=== PATIENT | female | born 1940 | race Caucasian/White ===

== ENCOUNTER 2023-04-12 05:37 | Observation (INO) ==
[2023-04-12] MEDS ORDERED: Chlorhexidine MOUTHWASH 0.12% 15 ML UDC ONE (05:44)
[2023-04-12] MEDS ORDERED: Lactated Ringers 1000 ml BAG 1,000 ML IV SCH ×2 (06:00→10:00)
[2023-04-12] MEDS ORDERED: Famotidine IV 10 MG/ML 2 ml VIAL (20 mg) IV ONE (06:00)
[2023-04-12] MEDS ORDERED: Buffered Lidocaine 1% SYRIN 1 ml INTRADERM ONE (06:00)
[2023-04-12] MEDS ORDERED: Lidocaine 2% PF 5 ML VIAL ONE (06:22)
[2023-04-12] MEDS ORDERED: Propofol 10 MG/ML 20 ML BTL ONE (06:28)
[2023-04-12] MEDS ORDERED: fentaNYL 100 mcg/2 ml 50 MCG/ML VIAL ONE (06:28)
[2023-04-12] MEDS ORDERED: Rocuronium 50 mg VIAL 10 mg/ml 5 ml VIAL (50 mg) ONE (06:28)
[2023-04-12] MEDS ORDERED: ceFAZolin 2 GM PREMIX 2 GM/50 ML BAG ONE (06:43)
[2023-04-12] MEDS ORDERED: Famotidine IV 10 MG/ML 2 ml VIAL (20 mg) ONE (06:43)
[2023-04-12] MEDS ORDERED: Lidocaine 1% w EPI 1:200,000 SDV 30 ML VIAL ONE (06:58)
[2023-04-12] MEDS ORDERED: Gelfoam Sponge SIZE 100 SPONGE ONE (06:58)
[2023-04-12] MEDS ORDERED: ceFAZolin VIAL VIAL ONE (06:58)
[2023-04-12] MEDS ORDERED: Thrombin 5,000 UNITS 1 APPLIC KIT - topical use - TOPICAL ONE (06:58)
[2023-04-12 07:04] LABS: Rapid COVID-19 Molecular Undetected (Undetected)
[2023-04-12] MEDS ORDERED: Phenylephrine IV 10 MG/ML 1 ml VIAL ONE (07:12)
[2023-04-12] MEDS ORDERED: Phenylephrine 40 mcg/mL 10mL (400mcg) SYRINGE ONE (07:39)
[2023-04-12] MEDS ORDERED: Dexamethasone IV 4 MG/ML VIAL 1 ml VIAL ONE (07:50)
[2023-04-12] MEDS ORDERED: Ondansetron 4 mg VIAL 2 MG/ML 2 ml VIAL ONE (07:50)
[2023-04-12] MEDS ORDERED: Acetaminophen IV 1 GM/100ML 1,000 MG/100 ML BAG IV ONE (07:54)
[2023-04-12] MEDS ORDERED: Naloxone 0.4 mg VIAL 0.4 mg/ml 1 ml VIAL IV PRN (08:06)
[2023-04-12] MEDS ORDERED: fentaNYL 100 mcg/2 ml 50 MCG/ML VIAL IV PRN (08:06)
[2023-04-12] MEDS ORDERED: Ondansetron 4 mg VIAL 2 MG/ML 2 ml VIAL IV PRN (09:19)
[2023-04-12] MEDS ORDERED: Calcium Carb (TUMS) 500 mg CHEW TAB PO PRN (09:19)
[2023-04-12] MEDS ORDERED: Morphine 2 MG/ML SYRINGE IV PRN (09:19)
[2023-04-12] MEDS ORDERED: Senna TAB 8.6 mg TAB PO PRN (09:19)
[2023-04-12] MEDS ORDERED: HYDROcodone/ACETAMIN 5/325 mg TAB PO PRN ×2 (11:00)
[2023-04-12] MEDS ORDERED: Dextran 70/Hypromellose Tears Eye Drops 15 ml BTL (for Artificials Tears) LEFT EYE PRN (11:00)
[2023-04-12] MEDS ORDERED: Insulin GLARGINE 100 un/ml 10 ml VIAL SUBCUT SCH (21:00)
[2023-04-13] MEDS: Multivitamins/Minerals TAB PO SCH (08:47)
[2023-04-13] MEDS: Magnesium Hydroxide LIQ 30 ML UDC PO SCH (08:48)
[2023-04-13] MEDS: Lactase Enzyme (NF) 3,000 UNIT TAB PO SCH (08:49)
[2023-04-14 06:31] VITALS: BP 156/82
[2023-04-14] MEDS: Magnesium Hydroxide LIQ 30 ML UDC PO SCH (08:02)
[2023-04-14] MEDS: Multivitamins/Minerals TAB PO SCH (08:04)
[2023-04-14] MEDS: Lactase Enzyme (NF) 3,000 UNIT TAB PO SCH (08:04)
== END 2023-04-14 10:30 | disposition home or self-care (01) ==
LOC: OR 05:37 → SSU 05:37
PROVIDERS: ADMIT Neurological Surgery; ATTEND Neurological Surgery